=== PATIENT | male | born 1970 | race Caucasian/White ===

== ENCOUNTER 2024-07-22 14:56 | Emergency (ER) | payer MEDICAID ==
[~2024-07-22] VITALS: Ht 170.2 cm; Wt 77.0 kg
[2024-07-22 15:19] VITALS: BP 136/85; PULSE 86; RESP 12; TEMP 36.7; O2SAT 97
== END 2024-07-22 18:55 | disposition left against medical advice (07) ==
LOC: ER 14:56
DX: F20.9 Schizophrenia, unspecified (principal); Z76.0 Encounter for issue of repeat prescription; Z53.21 Procedure and treatment not carried out due to patient leaving prior to being seen by health care provider